=== PATIENT | male | born 2000 | race African-American/Black ===

== ENCOUNTER 2018-02-26 02:57 | Emergency (ER) | payer OTHER, SELFPAY ==
[2018-02-26 02:59] VITALS: BP 119/71; PULSE 104; RESP 19; TEMP 36.6; O2SAT 98; BMI 26.1
--- NOTE | 2018-02-26 03:51 | ED.VISSUMM ---
- ER Visit Summary Date of Service: 02/26/18 Chief Complaint: Alcohol intake History of Present Illness: The patient is a 17 M patient sent from wellness Center from his college for evaluation. Admits to drinking alcohol this evening. Apparently became less responsive, friends to come to a wellness center, reported he had a low blood pressure and decreased responsiveness therefore was sent here by EMS. Denies any symptoms. Denies any illicit drug use. No suicidal homicidal ideations. He states he drinks occasionally. Denies any current symptoms. Physical Examination: General: Alert and oriented ?3, no acute distress HEENT: Normocephalic, atraumatic. Moist mucosa membranes Neck: supple, nontender. Cardiovascular: Regular rate and rhythm, no murmurs Respiratory: Normal breath sounds, symmetric, no distress Abdomen: Soft, nontender, nondistended Extremities: Nontender, no edema, pulses intact ?4 Neuro: no focal neurological deficits. Test Results: [] Emergency Department Course and Treatment: Patient nontoxic, vital signs stable. Currently complains of only fatigue. He is cooperative. He is alert. States his roommates were drinking with him. Patient will be discharged with [facility] to take him back. Treatment Plan: [] Disposition: Discharge Impression: Alcohol use This note was generated with [employer] dictation software. It may contain incorrect words, spelling, and punctuation that were not noted in review of the chart prior to signing ED Disposition - Plan for ED Patient: Disposition: Home or Assisted Living Chief Complaint: ETOH Intox Diagnosis: Alcohol use Instructions: Signs of Addiction: Social Use Referrals: [facility] Doctor,Out of [Primary Care Provider] -
[2018-02-26 03:53] VITALS: BP 129/64; PULSE 83; RESP 16; O2SAT 97
--- NOTE | 2018-02-26 03:54 | ED.DCSUM_ITS ---
- ER Visit Summary Date of Service: 02/26/18 Chief Complaint: Alcohol intake History of Present Illness: The patient is a 17 M patient sent from [facility] from his [facility] for evaluation. Admits to drinking alcohol this evening. Apparently became less responsive, friends to come to a wellness center, reported he had a low blood pressure and decreased responsiveness therefore was sent here by EMS. Denies any symptoms. Denies any illicit drug use. No suicidal homicidal ideations. He states he drinks occasionally. Denies any current symptoms. Physical Examination: General: Alert and oriented ?3, no acute distress HEENT: Normocephalic, atraumatic. Moist mucosa membranes Neck: supple, nontender. Cardiovascular: Regular rate and rhythm, no murmurs Respiratory: Normal breath sounds, symmetric, no distress Abdomen: Soft, nontender, nondistended Extremities: Nontender, no edema, pulses intact ?4 Neuro: no focal neurological deficits. Test Results: [] Emergency Department Course and Treatment: Patient nontoxic, vital signs stable. Currently complains of only fatigue. He is cooperative. He is alert. States his roommates were drinking with him. Patient will be discharged with [facility] to take him back. Treatment Plan: [] Disposition: Discharge Impression: Alcohol use This note was generated with [employer] dictation software. It may contain incorrect words, spelling, and punctuation that were not noted in review of the chart prior to signing ED Disposition - Plan for ED Patient: Disposition: Home or Assisted Living Chief Complaint: ETOH Intox Diagnosis: Alcohol use Instructions: Signs of Addiction: Social Use Referrals: [facility] Doctor,Out of [Primary Care Provider] -
--- NOTE | 2018-02-26 03:54 | NURSING ---
PT D/C WITH [facility]
== END 2018-02-26 04:05 | disposition home or self-care (01) ==
LOC: ED 04:05
PROVIDERS: Emergency Provider Emergency Medicine
DX: R53.83 Other fatigue (principal); Z72.89 Other problems related to lifestyle
CPT/HCPCS: 99284